=== PATIENT | female | born 1995 | race African-American/Black ===

== ENCOUNTER 2017-03-15 06:36 | Emergency (ER) | payer SELFPAY ==
[~2017-03-15] VITALS: Ht 154.9 cm; Wt 52.2 kg
[2017-03-15] MEDS ORDERED: KETOROLAC 30MG/ML VIAL IV STA (07:36)
[2017-03-15] MEDS ORDERED: SODIUM CHLORIDE 0.9% 1,000 ML IV ONE (07:36)
[2017-03-15] MEDS ORDERED: ONDANSETRON HCL 4MG/2ML VIAL IV STA (07:36)
[2017-03-15] MEDS ORDERED: FAMOTIDINE 20MG/2ML VIAL IV STA (07:36)
[2017-03-15] MEDS ORDERED: MAGNESIUM/ALUMINUM HYDROXIDE/SIMETHICONE 30ML UDC PO STA (07:36)
[2017-03-15 07:54] LABS: HEMATOCRIT. 34.3 % (36.0-48.0); HEMOGLOBIN. 11.2 g/dL (12.0-16.0); MEAN CORPUSCULAR HEMOGLOBIN 27.7 pg (28.0-32.0); MEAN CORPUSCULAR HGB CONC 32.5 g/dL (31.0-37.0); MEAN CORPUSCULAR VOLUME 85.3 fL (81.0-99.0); MEAN PLATELET VOLUME 6.9 fl (7.4-10.4); PLATELET 338 x1000/uL (130-400); RED BLOOD CELL COUNT 4.02 mill/uL (4.2-5.4); RED CELL DISTRIBUTION WIDTH 13.8 % (11.6-14.6); WHITE BLOOD COUNT 5.4 x1000/uL (4.5-11.0)
[2017-03-15 07:58] LABS: DIFFERENTIAL COMMENT 1
[2017-03-15 08:09] LABS: ALANINE AMINOTRANSFERASE 15 IU/L (13-61); ALBUMIN 3.7 g/dL (3.4-5.0); ANION GAP 13; CALCIUM 9.2 mg/dL (8.5-10.1); CARBON DIOXIDE 25 mEq/L (21-32); CHLORIDE 106 mEq/L (98-107); INDEX HEMOLYSI 1 (1-3); INDEX ICTERIC 1 (1-4); INDEX LIPEMIC 1 (1-3); LIPASE 203 IU/L (73-393); UREA NITROGEN BLOOD 14 mg/dL (7-21); eGFR > 60 mL/min (>60)
[2017-03-15 08:16] LABS: CLARITY URINE CLOUDY (CLEAR); COLOR URINE YELLOW (YELLOW); GLUCOSE URINE NEGATIVE (NEGATIVE); KETONES URINE TRACE (NEGATIVE); LEUKOCYTE ESTERASE URINE TRACE (NEGATIVE); NITRITE URINE NEGATIVE (NEGATIVE); OCCULT BLOOD URINE 3+ (NEGATIVE); PROTEIN URINE NEGATIVE (NEGATIVE); SPECIFIC GRAVITY URINE 1.032 (1.005-1.030)
[2017-03-15 08:30] LABS: BACTERIA URINE 2+; SQUAMOUS EPITHELIAL CELL URINE 2+ /lpf (RARE/1+)
[2017-03-15 08:31] LABS: AMORPHOUS SEDIMENT URINE 1+ /lpf; MUCUS URINE TRACE /lpf (< = 2+)
[2017-03-15 08:41] LABS: PLATELET ESTIMATE NORMAL
[2017-03-15 09:30] VITALS: BP 110/65
== END 2017-03-15 09:42 | disposition home or self-care (01) ==
LOC: ER 06:38
DX: N12 Tubulo-interstitial nephritis, not specified as acute or chronic (principal); R50.9 Fever, unspecified; K21.9 Gastro-esophageal reflux disease without esophagitis
CPT/HCPCS: 36415; 80053; 81001; 81025; 83690; 85025; 96361; 96374; 96375; 99284; J1885; J2405; J3490; J7030; Z7610